=== PATIENT | female | born 1955 | race African-American/Black ===

== ENCOUNTER 2020-07-08 21:05 | Emergency (ER) | payer OTHER ==
[~2020-07-08] VITALS: Ht 165.1 cm; Wt 65.0 kg
[2020-07-09 00:11] LABS: BASOPHILS % 0.6 % (0.0-2.0); HEMATOCRIT. 35.7 % (36.0-48.0); HEMOGLOBIN. 11.7 g/dL (12.0-16.0); LYMPHOCYTES % 30.6 % (20.0-50.0); MEAN CORPUSCULAR HEMOGLOBIN 30.3 pg (28.0-32.0); MEAN CORPUSCULAR VOLUME 92.1 fL (81.0-99.0); MEAN PLATELET VOLUME 9.6 fl (7.4-10.4); MONOCYTES % 8.8 % (2.0-8.0); PLATELET 215 x1000/uL (130-400); RED BLOOD CELL COUNT 3.88 mill/uL (4.2-5.4); RED CELL DISTRIBUTION WIDTH 12.6 % (11.6-14.6)
[2020-07-09 00:20] LABS: CHLORIDE 107 mEq/L (98-107)
[2020-07-09 01:45] VITALS: BP 173/69
== END 2020-07-09 02:02 | disposition home or self-care (01) ==
LOC: ER 21:05
DX: R06.02 Shortness of breath (principal); I10 Essential (primary) hypertension; E03.9 Hypothyroidism, unspecified; Z03.818 Encounter for observation for suspected exposure to other biological agents ruled out; Z88.0 Allergy status to penicillin
CPT/HCPCS: 36415; 71045; 80053; 83880; 84484; 85025; 93005; 99285; C9803; U0003

== ENCOUNTER 2020-07-10 18:08 | Emergency (ER) | payer OTHER ==
[~2020-07-10] VITALS: Ht 167.6 cm; Wt 80.0 kg
[2020-07-10 19:52] VITALS: BP 159/66
== END 2020-07-10 19:53 | disposition home or self-care (01) ==
LOC: ER 18:08
DX: J01.90 Acute sinusitis, unspecified (principal); J06.9 Acute upper respiratory infection, unspecified
CPT/HCPCS: 99283

== ENCOUNTER 2021-08-21 20:36 | Emergency (ER) | payer OTHER ==
[~2021-08-21] VITALS: Ht 162.6 cm; Wt 73.5 kg
[2021-08-21 23:55] VITALS: BP 136/92
== END 2021-08-21 23:59 | disposition home or self-care (01) ==
LOC: ER 20:36
DX: R53.1 Weakness (principal); R20.2 Paresthesia of skin; R51.9 Headache, unspecified; F17.210 Nicotine dependence, cigarettes, uncomplicated; Z71.6 Tobacco abuse counseling
CPT/HCPCS: 93005; 99283; 99406